=== PATIENT | male | born 1990 | race American Indian/Alaskan Native ===

== ENCOUNTER 2016-09-25 03:34 | Emergency (ER) | payer SELFPAY ==
[2016-09-25 03:45] VITALS: BP 128/83
--- NOTE | 2016-09-25 08:29 | Emergency Department Report ---
ED ENT HPI - General Chief complaint: Dental/Oral Stated complaint: RASH Time Seen by Provider: 09/25/16 08:25 Source: patient Mode of arrival: Ambulatory Limitations: No Limitations - History of Present Illness Initial comments: 26-year-old male past medical history none presents with complaint of 2 days of lesion on the corner of the lips MD complaint: other - Related Data Previous Rx's Medication Instructions Recorded Last Taken Type Acyclovir [Zovirax Cap] 200 mg PO 5XD #25 cap 09/25/16 Unknown Rx Ibuprofen [Motrin] 600 mg PO Q8H PRN #12 tablet 09/25/16 Unknown Rx Allergies Allergy/AdvReac Type Severity Reaction Status Date / Time No Known Allergies Allergy Verified 09/25/16 03:45 ED Dental HPI - General Chief complaint: Dental/Oral Stated complaint: RASH Time Seen by Provider: 09/25/16 08:25 Source: patient Mode of arrival: Ambulatory Limitations: No Limitations - Related Data Previous Rx's Medication Instructions Recorded Last Taken Type Acyclovir [Zovirax Cap] 200 mg PO 5XD #25 cap 09/25/16 Unknown Rx Ibuprofen [Motrin] 600 mg PO Q8H PRN #12 tablet 09/25/16 Unknown Rx Allergies Allergy/AdvReac Type Severity Reaction Status Date / Time No Known Allergies Allergy Verified 09/25/16 03:45 ED Review of Systems ROS: Stated complaint: RASH Other details as noted in HPI ED Past Medical Hx - Past Medical History Previous Medical History?: No - Surgical History Past Surgical History?: No - Social History Smoking Status: Current Every Day Smoker Substance Use Type: Marijuana - Medications Home Medications: Home Medications Medication Instructions Recorded Confirmed Last Taken Type Acyclovir [Zovirax Cap] 200 mg PO 5XD #25 cap 09/25/16 Unknown Rx Ibuprofen [Motrin] 600 mg PO Q8H PRN #12 tablet 09/25/16 Unknown Rx ED Physical Exam - General Limitations: No Limitations ED Course Vital Signs 09/25/16 03:40 Temperature 97.6 F Pulse Rate 65 Respiratory 18 Rate Blood Pressure 128/83 O2 Sat by Pulse 100 Oximetry ED Medical Decision Making - Medical Decision Making A/P: Oral herpes simplex, cold sores 1-acyclovir course for first outbreak 200 to 400 mg 5 times daily for 5 days 2-patient referred to health department for further STD testing has no dysuria no penile discharge no genitourinary lesions no lymphadenopathy no fevers or chills 3- 4- Critical care attestation.: If time is entered above; I have spent that time in minutes in the direct care of this critically ill patient, excluding procedure time. ED Disposition Clinical Impression: Cold sore Disposition: DC-01 TO HOME OR SELFCARE Is pt being admited?: No Does the pt Need Aspirin: No Condition: Stable Instructions: Oral Herpes Simplex Virus Infections (ED) Prescriptions: Acyclovir [Zovirax Cap] 200 mg PO 5XD #25 cap Ibuprofen [Motrin] 600 mg PO Q8H PRN #12 tablet PRN Reason: Pain Referrals: [facility] [Provider Group] - 3-5 Days [facility] [Outside] - 3-5 Days [facility] [Outside] - 3-5 Days Forms: Work/School Release Form(ED) Time of Disposition: 08:29
== END 2016-09-25 08:37 | disposition home or self-care (01) ==
LOC: ED 03:34
DX: B00.1 Herpesviral vesicular dermatitis (principal); F17.200 Nicotine dependence, unspecified, uncomplicated; F12.10 Cannabis abuse, uncomplicated
CPT/HCPCS: 99282

== ENCOUNTER 2017-09-29 19:42 | Emergency (ER) | payer SELFPAY ==
[2017-09-29 20:02] VITALS: BP 137/74
[2017-09-30] MEDS ORDERED: DELTASONE PO ONE (00:02)
[2017-09-30] MEDS ORDERED: BENADRYL PO ONE (00:02)
--- NOTE | 2017-09-30 00:10 | Emergency Department Report ---
HPI - General Chief Complaint: Skin Rash Time Seen by Provider: 09/30/17 00:02 - HPI HPI: The patient is a 27-year-old male presents for evaluation of rash. The patient reports sudden onset of severe itching rash to the extremities and torso 1 day ago after working on a lawn/cutting graas. He states that the rash spread from the shoulders to torso and that it is exacerbated with scratching of the rash. The patient denies fever, swelling of the lips or tongue, facial swelling, throat or neck swelling, dyspnea, neck stiffness, dysphagia, stridor, drooling, difficulty tolerating secretions, dysphonia, hoarseness of voice, abdominal pain. ED Past Medical Hx - Past Medical History Previous Medical History?: No - Surgical History Past Surgical History?: No - Social History Smoking Status: Never Smoker Substance Use Type: None - Medications Home Medications: Home Medications Medication Instructions Recorded Confirmed Last Taken Type Acyclovir [Zovirax Cap] 200 mg PO 5XD #25 cap 09/25/16 Unknown Rx Ibuprofen [Motrin] 600 mg PO Q8H PRN #12 tablet 09/25/16 Unknown Rx Hydrocortisone 2.5% [Hytone 2.5% 1 applicatio TP BID #1 tube 09/30/17 Unknown Rx CREAM] diphenhydrAMINE [Benadryl CAP] 50 mg PO Q8HR PRN #30 capsule 09/30/17 Unknown Rx ED Review of Systems ROS: Stated complaint: RASH Other details as noted in HPI Constitutional: denies: fever ENT: denies: throat or neck pain Respiratory: denies: cough, shortness of breath Cardiovascular: denies: chest pain Endocrine: denies unexplained weight loss or gain Gastrointestinal: denies: abdominal pain, nausea Genitourinary: denies: dysuria Musculoskeletal: denies: leg swelling Skin: reports: rash Neurological: denies: headache Hematological/Lymphatic: denies: easy bleeding or easy bruising Psych: denies sadness or hopelessness Physical Exam - Physical Exam Vital Signs: Vital Signs 09/29/17 19:58 Temperature 98 F Pulse Rate 86 Respiratory 18 Rate Blood Pressure 137/74 O2 Sat by Pulse 98 Oximetry Physical Exam: General: well-nourished, well-developed, no acute distress Head: Normocephalic, atraumatic Eyes: normal sclera ENT: Mucous membranes are pink and moist, no swelling of the lips, tongue, uvula , soft palate, no soft palate or tonsillar deviation, no pooling of secretions in the posterior oropharynx, no drooling, stridor or dysphonia, no signs of impending airway compromise Neck: trachea midline, neck supple, No neck stiffness, no cervical adenopathy Respiratory: Breath sounds equal bilaterally, no wheezing, rales, or rhonchi Cardio: S1 and S2 present, no murmurs, rubs, gallops, capillary refill is brisk Abdomen: Normoactive bowel sounds, soft abdomen, no rigidity, no guarding or rebound tenderness Musc: No pitting edema Skin: Multiple circular red raised wheals hasn't to the bilateral upper and lower extremities and to the torso, no areas of fluctuance or induration Neuro: no facial drooping, normal speech Psych: Normal affect ED Course Vital Signs 09/29/17 19:58 Temperature 98 F Pulse Rate 86 Respiratory 18 Rate Blood Pressure 137/74 O2 Sat by Pulse 98 Oximetry ED Medical Decision Making - Medical Decision Making The patient was seen and examined by myself. Findings on exam are concerning for acute contact dermatitis. The patient given Benadryl 20 tablet of prednisone for treatment of poison gaby. The patient is given a prescription for hydrocortisone cream and Benadryl. The patient was reevaluated and reported that their symptoms were markedly improved. The patient is stable for discharge with outpatient follow-up. The patient is given follow-up and return instructions. The patient expressed understanding and agreed with the plan. The patient is discharged in stable condition. Critical care attestation.: If time is entered above; I have spent that time in minutes in the direct care of this critically ill patient, excluding procedure time. ED Disposition Clinical Impression: Contact dermatitis Qualifiers: Contact dermatitis type: allergic Contact dermatitis trigger: non-food plants Qualified Code(s): L23.7 - Allergic contact dermatitis due to plants, except food Disposition: DC-01 TO HOME OR SELFCARE Is pt being admited?: No Does the pt Need Aspirin: No Condition: Stable Instructions: Poison Gaby (ED) Prescriptions: diphenhydrAMINE [Benadryl CAP] 50 mg PO Q8HR PRN #30 capsule PRN Reason: Itching Hydrocortisone 2.5% [Hytone 2.5% CREAM] 1 applicatio TP BID #1 tube Referrals: PRIMARY CARE, [Primary Care Provider] - 3-5 Days [facility] [Outside] - 3-5 Days Time of Disposition: 00:06
== END 2017-09-30 00:40 | disposition home or self-care (01) ==
LOC: ED 19:42
DX: L23.7 Allergic contact dermatitis due to plants, except food (principal)
CPT/HCPCS: 99282; J7512

== ENCOUNTER 2018-07-30 12:52 | Emergency (ER) | payer OTHER ==
[2018-07-30 12:55] VITALS: BP 158/89
--- NOTE | 2018-07-30 13:08 | Emergency Department Report ---
Chief Complaint: Urogenital-Male Stated Complaint: STD Time Seen by Provider: 07/30/18 12:59 - HPI History of Present Illness: This is a 28-year-old male nontoxic, well in appearance with no signs of distress presents to the ED for STD check. Patient stated that his partner called and said has STD. Patient stated he is asymptotic. Denies any penile discharge, testicular pain, or swelling. Patient denies any urinary symptoms. Patient denies any fever, chills, headache, nausea, vomiting, chest pain or shortness of breathe. denies any other symptoms or complaints. Denies any allergies or PMH. - Exam Vital Signs: Vital Signs 07/30/18 12:54 Temperature 98.1 F Pulse Rate 72 Respiratory 16 Rate Blood Pressure 158/89 O2 Sat by Pulse 98 Oximetry Physical Exam: no abdominal pain. no urinary symptoms. No back or flank pain. MSE screening note: Focused history and physical exam performed. Due to findings the following was ordered: ED Medical Decision Making - Medical Decision Making This is a 28-year-old male that presents with nonmedical emergency complaint. Patient is just requested for a STD test. Patient denies any symptoms. Patient was approached by registration for insurance or copay but patient refused. I gave patient many different referrals to follow-up with STD concerns. Patient was instructed to Follow-up with a primary care doctor in 3-5 days or if symptoms worsen and continue return to emergency room as soon as possible. At time of discharge, the patient does not seem toxic or ill in appearance. No acute signs of distress noted. Patient agrees to discharge treatment plan of care. No further questions noted by the patient. ED Disposition for MSE Clinical Impression: Possible exposure to STD Disposition: Z-07 MED SCREENING EXAM-LEFT Is pt being admited?: No Does the pt Need Aspirin: No Condition: Stable Instructions: Safe Sex (ED) Additional Instructions: Follow-up with a primary care doctor, [facility], or [facility] in 3-5 days or if symptoms worsen and continue return to the emergency department as soon as possible. Referrals: NELLY FRAIRE MD [Primary Care Provider] - 3-5 Days PRIMARY MD HILARY [Referring] - 3-5 Days CURTIS DUMAS MD [Staff Physician] - 3-5 Days [facility] [Outside] - 3-5 Days [facility] [Outside] - 3-5 Days
== END 2018-07-30 13:59 | disposition left against medical advice (07) ==
LOC: ED 12:52
DX: Z20.2 Contact with and (suspected) exposure to infections with a predominantly sexual mode of transmission (principal)
CPT/HCPCS: 99281